=== PATIENT | male | born 1960 | race Two or more races ===

== ENCOUNTER 2022-03-13 04:59 | Inpatient (IN) | payer OTHER ==
[~2022-03-13] VITALS: Ht 175.3 cm; Wt 80.7 kg
[2022-03-13 06:16] LABS: Albumin 1.5 g/dL (3.4-5.0); Calcium 7.3 mg/dL (8.5-10.1); Potassium 4.5 mmol/L (3.5-5.1)
[2022-03-13 06:17] LABS: Basophils # (auto) 0 10 ^3/uL (0-0.2); Eosinophils # (auto) 0 10 ^3/uL (0-0.8); Neutrophils % (auto) 80.4 % (37.0-80.0)
[2022-03-13 06:18] LABS: BUN/Creatinine Ratio 16.9
[2022-03-13 06:21] LABS: Basophils % (auto) 0.3 % (0.0-2.0); Bilirubin, Total 0.9 mg/dL (0.2-1.0); Eosinophils % (auto) 0.1 % (0.0-7.0); Hematocrit 26.7 % (41.0-53.0); Hemoglobin 9.6 g/dL (13.5-17.5); INR 1.84 (0.9-1.15); Lymphocytes # (auto) 0.8 10 ^3/uL (0.4-5.4); Lymphocytes % (auto) 4.9 % (10.0-50.0); Mean Corpuscular Hemoglobin 39.2 pg (28.0-32.0); Mean Corpuscular Volume 108.9 fL (80.0-100.0); Monocytes # (auto) 2.4 10 ^3/uL (0-1.3); Monocytes % (auto) 14.3 % (0.0-12.0); Neutrophils # (auto) 13.4 10 ^3/uL (1.6-8.6); Nucleated Red Blood Cells % 0.1 %; Partial Thromboplastin Time 31.8 sec (23.6-33.0); Red Blood Cells 2.45 10^6/uL (4.5-5.90); Red Cell Distribution Width 15.1 % (11.8-14.3); Total Protein 5.3 g/dL (6.4-8.2); White Blood Cell 16.6 10^3/uL (4.4-10.8)
[2022-03-13] MEDS ORDERED: PANTOPRAZOLE 40mg/50ML NS AE 50 ML IV ONE (07:15)
[2022-03-13] MEDS ORDERED: SODIUM CHLORIDE 0.9% 1,000 ML IV ONE ×3 (07:15→10:30)
[2022-03-13] MEDS ORDERED: cefTRIAXone 1GM/50ML D5W 50 ML IV ONE (07:15)
[2022-03-13] MEDS ORDERED: metroNIDAZOLE 500MG/100ML 100 ML IV ONE (07:15)
[2022-03-13 08:20] LABS: Lactic Acid w/Reflex 2.6 mmol/L (0.4-2.0)
[2022-03-13 09:33] LABS: Urine Bacteria FEW /hpf (None Seen); Urine Blood 3+ /uL (Negative); Urine Hyaline Cast FEW /lpf (0 - 2); Urine Specific Gravity 1.027 (1.001-1.035); Urine WBC 16 /hpf (0 - 3)
[2022-03-13] MEDS ORDERED: LACTULOSE 10g/15ml SOLN 473ML PR ONE ×2 (09:45→21:45)
[2022-03-13] MEDS ORDERED: LACTULOSE 20Gm/30ML SOLN PO ONE (10:00)
[2022-03-13 10:47] LABS: Basophils # (auto) 0.1 10 ^3/uL (0-0.2); Basophils % (auto) 0.4 % (0.0-2.0); Eosinophils # (auto) 0 10 ^3/uL (0-0.8); Hematocrit 28.5 % (41.0-53.0); Hemoglobin 9.3 g/dL (13.5-17.5); Lymphocytes # (auto) 2.7 10 ^3/uL (0.4-5.4); Lymphocytes % (auto) 13.3 % (10.0-50.0); Mean Corpuscular Hgb Conc. 32.8 g/dL (32.0-36.0); Mean Corpuscular Volume 91.6 fL (80.0-100.0); Monocytes % (auto) 9.5 % (0.0-12.0); Neutrophils # (auto) 15.9 10 ^3/uL (1.6-8.6); Neutrophils % (auto) 76.8 % (37.0-80.0); Nucleated Red Blood Cells % 0.1 %; Red Blood Cells 3.11 10^6/uL (4.5-5.90); Red Cell Distribution Width 14.9 % (11.8-14.3); White Blood Cell 20.7 10^3/uL (4.4-10.8)
[2022-03-13] MEDS: PANTOPRAZOLE 40mg/50ML NS AE 50 ML IV SCH ×2 (11:09→15:41)
[2022-03-13] MEDS ORDERED: FUROSEMIDE 20 MG/2 ML VIAL IV ONE (17:30)
[2022-03-13] MEDS ORDERED: ETOMIDATE (2MG/ML) 20ML VIAL IV ONE ×2 (18:01→18:45)
[2022-03-13] MEDS ORDERED: ROCURONIUM 10MG/ML 10ML VIAL IV ONE ×2 (18:01→18:45)
[2022-03-13] MEDS ORDERED: MIDAZOLAM DRIP 50 mg/50mL 50 ML IV ONE (18:07)
[2022-03-13] MEDS: MIDAZOLAM DRIP 50 mg/50mL 50 ML IV SCH ×2 (18:11→21:16)
[2022-03-13 18:23] VITALS: BP 173/92
[2022-03-13] MEDS ORDERED: NITROGLYCERIN 0.4 MG SL TAB SL PRN (18:30)
[2022-03-13] MEDS ORDERED: MORPHINE SULFATE INJ 2 MG/ml SYRG IV PRN ×2 (18:30→22:00)
[2022-03-13 20:03] VITALS: BP 129/74
[2022-03-13 20:32] VITALS: BP 129/74
[2022-03-13 22:00] VITALS: BP 110/59
[2022-03-13] MEDS ORDERED: LORazepam 2MG/ML-1ML VIAL IV PRN (22:00)
[2022-03-13] MEDS ORDERED: fentaNYL Drip 2500mCg/250mlNS 250 ML IV ONE (22:11)
[2022-03-13] MEDS ORDERED: ONDANSETRON HCL 4 MG/2 ML VIAL IV PRN (22:15)
[2022-03-13] MEDS ORDERED: fentaNYL Drip 2500mCg/250mlNS 250 ML IV SCH (22:15)
[2022-03-13] MEDS ORDERED: DOCUSATE SOD 100 MG CAP PO PRN (22:15)
[2022-03-13] MEDS ORDERED: hydrALAZINE HCL 20 MG/ML VL IV PRN (22:15)
[2022-03-13 23:15] LABS: INR 1.78 (0.9-1.15); Partial Thromboplastin Time 32.8 sec (23.6-33.0)
[2022-03-13 23:20] LABS: Magnesium 1.9 mg/dL (1.6-2.6)
[2022-03-13 23:24] LABS: Lactic Acid w/Reflex 5.9 mmol/L (0.4-2.0)
[2022-03-13] MEDS: OCTREOTIDE ACETATE 500 MCG in SODIUM CHL 0.9% 99 ML IV SCH (23:50)
[2022-03-14] VITALS (75 sets, daily range): BP systolic 27–268; BP diastolic 11–189
[2022-03-14] MEDS: PANTOPRAZOLE 40 MG/10 ML VIAL INJ IV SCH ×3 (00:47→21:38)
[2022-03-14] MEDS: AZITHROMYCIN 500MG/ 250ML 250 ML IV SCH ×2 (00:48→21:38)
[2022-03-14] MEDS ORDERED: OCTREOTIDE ACETATE 500 MCG/ML VL ONE (00:57)
[2022-03-14] MEDS ORDERED: NOREPINEPHRINE 8 MG/250ML KIT 250 ML IV SCH (01:40)
[2022-03-14] MEDS ORDERED: NOREPINEPHRINE 8 MG/250ML KIT 250 ML IV ONE (01:44)
[2022-03-14] MEDS: LACTULOSE 20Gm/30ML SOLN PO SCH ×2 (02:30→05:22)
[2022-03-14] MEDS ORDERED: ALBUMIN 5% 250 ML IV ONE (05:45)
[2022-03-14 06:02] LABS: Hematocrit 32.3 % (41.0-53.0); Mean Corpuscular Hemoglobin 33.7 pg (28.0-32.0); Mean Corpuscular Hgb Conc. 30.9 g/dL (32.0-36.0); Mean Corpuscular Volume 109.1 fL (80.0-100.0); Red Blood Cells 2.96 10^6/uL (4.5-5.90); Red Cell Distribution Width 16.9 % (11.8-14.3)
[2022-03-14 06:08] LABS: Chloride 120 mmol/L (98-107); Magnesium 2.4 mg/dL (1.6-2.6); Potassium 5.1 mmol/L (3.5-5.1); Sodium 148 mmol/L (136-145)
[2022-03-14 06:15] LABS: Alanine Aminotransferase 390 U/L (16-61); Albumin 1.5 g/dL (3.4-5.0); Alkaline Phosphatase 119 U/L (45-117); Anion Gap 15 (5-15); Aspartate Aminotransferase 930 U/L (15-37); BUN/Creatinine Ratio 13.4; Bilirubin, Total 1.4 mg/dL (0.2-1.0); Blood Urea Nitrogen 38 mg/dL (7-18); CRP High Sensitivity 0.79 mg/dL (< 0.3); Calcium 7.6 mg/dL (8.5-10.1); Carbon Dioxide 13 mmol/L (21-32); Cholesterol < 50 mg/dL (< 200); GFR African American 30 mL/min; GFR Non-African American 24 mL/min; HDL Cholesterol 15 mg/dL (40-59); LDL Cholesterol 24 mg/dL (< 100); Lipase 234 U/L (73-393); Phosphorus 6.8 mg/dL (2.5-4.90); Total Protein 5.8 g/dL (6.4-8.2); Triglycerides 96 mg/dL (< 150); Uric Acid 5.9 mg/dL (3.5-7.2)
[2022-03-14 06:18] LABS: Thyroid Stimulating Hormone 0.67 uIU/mL (0.358-3.74)
[2022-03-14] MEDS ORDERED: VASOPRESSIN 20 UNIT/ML ONE ×2 (06:20→06:32)
[2022-03-14 06:24] LABS: Glucose 28 mg/dL (74-106)
[2022-03-14 06:25] LABS: INR 2.07 (0.9-1.15); Partial Thromboplastin Time 48.1 sec (23.6-33.0)
[2022-03-14 06:26] LABS: White Blood Cell 42.6 10^3/uL (4.4-10.8)
[2022-03-14] MEDS ORDERED: DEXTROSE 50% SYRINGE 100 ML IV ONE (06:26)
[2022-03-14 06:27] LABS: Basophils % (manual) 0 (0.0-2.0); Blast Cells 0; Eosinophils % (manual) 0 (0-7); Myelocytes % 0; Promyelocytes % 0; Reactive Lymphocytes 0
[2022-03-14] MEDS ORDERED: VASOPRESSIN 50 UNITS in D5W 5% 247.5 ML IV SCH ×2 (06:30→06:45)
[2022-03-14] MEDS ORDERED: DEXTROSE (50%) 50ML SYRG IV ONE (06:30)
[2022-03-14] MEDS ORDERED: DEXTROSE 50% SYRINGE 50 ML IV ONE (07:45)
[2022-03-14] MEDS ORDERED: PHENYLEPHRINE IV 250 ML IV SCH (08:15)
[2022-03-14] MEDS ORDERED: D5W/SOD CHL 0.45% 1,000 ML IV SCH (08:15)
[2022-03-14] MEDS: OCTREOTIDE ACETATE 500 MCG in SODIUM CHL 0.9% 99 ML IV SCH ×3 (08:20→22:09)
[2022-03-14] MEDS ORDERED: cefTRIAXone 1GM/50ML D5W 50 ML IV SCH (09:00)
[2022-03-14] MEDS ORDERED: SODIUM BICARBONATE 8.4 % INJ 50ML VIAL IV ONE ×2 (09:30→09:33)
[2022-03-14] MEDS ORDERED: NOREPINEPHRINE BITARTRATE 32 MG in SODIUM CHL 0.9% 218 ML IV SCH (11:30)
[2022-03-14] MEDS: EPINEPHrine HCL INJECTION 16 MG in D5W 5% 234 ML IV SCH ×2 (11:45→21:27)
[2022-03-14] MEDS: PHENYLEPHRINE INJ 80 MG in SODIUM CHL 0.9% 242 ML IV SCH ×2 (12:43→21:29)
[2022-03-14] MEDS: SODIUM BICARBONATE 50ML VIAL 150 ML in D5W 5% 1,000 ML IV SCH (12:56)
[2022-03-14 14:23] LABS: Band Neutrophils % (manual) 11; Lymphocytes % (manual) 6 (10.0-50.0); Metamyelocytes % 7; Monocytes % (manual) 10 (0-12)
[2022-03-14] MEDS: MIDAZOLAM DRIP 50 mg/50mL 50 ML IV SCH (16:36)
[2022-03-14] MEDS: LACTULOSE 10g/15ml SOLN 473ML PR SCH (17:02)
[2022-03-14] MEDS: ACCU-CHEK COMFORT CURVE STRIP VI SCH ×3 (17:42→22:08)
[2022-03-14] MEDS: DEXTROSE (50%) 50ML SYRG IV PRN (17:43)
[2022-03-14 18:45] LABS: Urine Bacteria FEW /hpf (None Seen); Urine Blood 2+ /uL (Negative); Urine Mucus FEW (None Seen); Urine WBC 126 /hpf (0 - 3)
[2022-03-14 18:47] LABS: Alcohol, Urine < 3.0 mg/dL (0-10); Amphetamine Screen, Urine NEGATIVE (NEGATIVE); Barbiturate Scree,Urine NEGATIVE (NEGATIVE); Benzodiazephine Screen, Urine POSITIVE (NEGATIVE); Cannabinoid Screen, Urine NEGATIVE (NEGATIVE); Cocaine Screen, Urine POSITIVE (NEGATIVE); Opiate Scree,Urine NEGATIVE (NEGATIVE); Phencyclidine Screen, Urine NEGATIVE (NEGATIVE); Protein, Urine 25.6 mg/dL (0.0-11.9)
[2022-03-14] MEDS ORDERED: SODIUM CHLOR 0.9% PF (SALINE LOCK) 10ML VIAL/SYR IV SCH (22:00)
[2022-03-15] VITALS (13 sets, daily range): BP systolic 33–105; BP diastolic 14–87
[2022-03-15] MEDS: SODIUM BICARBONATE 50ML VIAL 150 ML in D5W 5% 1,000 ML IV SCH (00:02)
[2022-03-15] MEDS: MIDAZOLAM DRIP 50 mg/50mL 50 ML IV SCH (00:02)
[2022-03-15] MEDS: ACCU-CHEK COMFORT CURVE STRIP VI SCH (00:08)
[2022-03-15] MEDS: LACTULOSE 10g/15ml SOLN 473ML PR SCH (00:12)
[2022-03-15] MEDS: DEXTROSE (50%) 50ML SYRG IV PRN (00:21)
[2022-03-15] MEDS ORDERED: LORazepam 2MG/ML-1ML VIAL IV PRN (02:00)
[2022-03-15] MEDS ORDERED: MORPHINE SULFATE INJ 2 MG/ml SYRG IV PRN (02:00)
[2022-03-15 12:09] LABS: Hepatitis C Antibody Positive (Negative)
[2022-03-15 12:10] LABS: Hepatitis A Ab IgM Negative; Hepatitis B Core IgM Negative
== END 2022-03-15 06:09 | DRG 871 ==
LOC: ER 04:59 → EDBD 04:59 → TELE 18:28 → ICU CENTRL 03-14 09:55
PROVIDERS: ADMIT Hospitalist; ATTEND Internal Medicine Pulmonary Disease
PROC: 5A1945Z Respiratory Ventilation, 24-96 Consecutive Hours (ICD-10-PCS; principal; 2022-03-13)
PROC: 0BH17EZ Insertion of Endotracheal Airway into Trachea, Via Natural or Artificial Opening (ICD-10-PCS; 2022-03-13)
PROC: 0D9670Z Drainage of Stomach with Drainage Device, Via Natural or Artificial Opening (ICD-10-PCS; 2022-03-13)
DX: A41.9 Sepsis, unspecified organism (principal); E43 Unspecified severe protein-calorie malnutrition; J96.01 Acute respiratory failure with hypoxia; J96.02 Acute respiratory failure with hypercapnia; K65.2 Spontaneous bacterial peritonitis; K72.00 Acute and subacute hepatic failure without coma; R65.21 Severe sepsis with septic shock; G93.41 Metabolic encephalopathy; Z66 Do not resuscitate; D68.4 Acquired coagulation factor deficiency; E87.2 Acidosis; F11.20 Opioid dependence, uncomplicated; K92.2 Gastrointestinal hemorrhage, unspecified; N17.9 Acute kidney failure, unspecified; N39.0 Urinary tract infection, site not specified; Z20.822 Contact with and (suspected) exposure to COVID-19; D50.0 Iron deficiency anemia secondary to blood loss (chronic); G89.4 Chronic pain syndrome; K74.60 Unspecified cirrhosis of liver; Z68.26 Body mass index [BMI] 26.0-26.9, adult; Z85.05 Personal history of malignant neoplasm of liver
CPT/HCPCS: 31500; 36415; 36569; 36600; 70450; 71045; 74176; 76705; 80053; 80061; 80074; 80307; 81001; 82105; 82140; 82728; 82805; 82962; 83036; 83605; 83615; 83690; 83735; 83880; 84100; 84156; 84439; 84443; 84484; 84550; 85007; 85025; 85027; 85379; 85610; 85652; 85730; 86141; 86850; 86900; 86901; 87040; 87070; 87081; 87086; 87205; 93005; 94002; 94003; 96365; 96367; 99291; A4565; C9113; G0378; J0171; J0696; J2250; J3490; J7060